=== PATIENT | female | born 1995 | race Two or more races ===

== ENCOUNTER 2018-07-13 19:06 | Emergency (ER) | payer OTHER ==
[~2018-07-13] VITALS: Ht 157.5 cm; Wt 53.1 kg
[2018-07-13] MEDS ORDERED: NKM (19:12)
--- NOTE | 2018-07-13 19:22 | NUR ---
ED Nurse Note: Pt walked in Er and c/o R earache since 1am today. Pt is AO x 4times, Vss, on room air no distress. CHEVYD seen Pt at bedside.
[2018-07-13 19:23] VITALS: BP 130/81
--- NOTE | 2018-07-13 19:34 | Emergency Room Report ---
History of Present Illness General Chief Complaint: Earache Source: Patient Present Illness HPI 23-year-old female presents to the emergency department complaining of 5 out of 10 in severity right ear pain 2 days. Patient reports that the pain awoke her from her sleep. Patient reports that her hearing is been slightly distorted and she hears slight scratchy/static noise from that ear. Patient reports a sudden episode of 10/10 pain and then felt a pop. She states this occurred twice [employer]. Patient reports one hot flash she denies measured fevers or chills she reports she has had some nasal congestion but otherwise no other symptoms. Patient states she took some ibuprofen which helped reduce her pain for an hour or 2 but then her pain returned. Denies discharge from the ear or external ear tenderness Allergies: Coded Allergies: No Known Allergies (Unverified , 07/13/18) Patient History Past Medical History: see triage record Past Surgical History: none Pertinent Family History: none Last Menstrual Period: 3 1/2 weeks ago Now: No Immunizations: UTD Reviewed Nursing Documentation: PMH: Agreed; PSxH: Agreed Nursing Documentation-PMH Past Medical History: No Stated History Review of Systems All Other Systems: negative except mentioned in HPI Physical Exam Vital Signs Date Time Temp Pulse Resp B/P (MAP) Pulse Ox O2 Delivery O2 Flow Rate FiO2 07/13/18 19:08 98.2 99 16 129/84 98 Room Air Sp02 EP Interpretation: reviewed, normal General Appearance: no apparent distress, alert, GCS 15, non-toxic Head: normocephalic, atraumatic Eyes: bilateral eye normal inspection, bilateral eye PERRL ENT: hearing grossly normal, normal voice, other - right tympanic membrane is erythematous and bulging, not perforated, left TM and canal are WNL. Neck: full range of motion Respiratory: lungs clear, normal breath sounds, speaking full sentences Cardiovascular #1: regular rate, rhythm Musculoskeletal: back normal, gait/station normal, normal range of motion, non- tender Neurologic: alert, oriented x3, responsive, motor strength/tone normal, sensory intact, speech normal, grossly normal Psychiatric: judgement/insight normal Skin: normal color, no rash, warm/dry, well hydrated Lymphatic: no adenopathy Medical Decision Making PA Attestation Dr. Warren is my supervising Physician whom patient management has been discussed with. Diagnostic Impression: Primary Impression: Otitis media Qualified Codes: H66.001 - Acute suppurative otitis media without spontaneous rupture of ear drum, right ear ER Course 23-year-old female presents to the emergency department complaining of 5 out of 10 in severity right ear pain 2 days. Patient reports that the pain awoke her from her sleep. Patient reports that her hearing is been slightly distorted and she hears slight scratchy/static noise from that ear. Patient reports a sudden episode of 10/10 pain and then felt a pop. She states this occurred twice [employer]. Patient reports one hot flash she denies measured fevers or chills she reports she has had some nasal congestion but otherwise no other symptoms. Patient states she took some ibuprofen which helped reduce her pain for an hour or 2 but then her pain returned. Denies discharge from the ear or external ear tenderness Ddx considered but are not limited to OM, OE, mastoiditis, TM perforation, FB Vital signs: are WNL, pt. is afebrile H&PE are most consistent with otitis media ORDERS: none required at this time, the diagnosis is clinical -OTOSCOPY: right tympanic membrane is erythematous and bulging, not perforated, left TM and canal are WNL. ED INTERVENTIONS: None required at this time. DISCHARGE: At this time pt. is stable for d/c to home. With PO ABX. Will provide printed patient care instructions, and any necessary prescriptions. Care plan and follow up instructions have been discussed with the patient prior to discharge. Last Vital Signs Date Time Temp Pulse Resp B/P (MAP) Pulse Ox O2 Delivery O2 Flow Rate FiO2 07/13/18 19:23 98.4 72 16 130/81 98 Room Air Disposition: HOME, SELF-CARE Condition: Stable Scripts Acetaminophen* (TYLENOL EXTRA STRENGTH*) 500 Mg Tablet 500 MG ORAL Q6H PRN for Mild Pain/Temp > 100.5, #30 TAB 0 Refills Prov: Amina Emerson 07/13/18 Amoxicillin/Potassium Clav 875-125* (AUGMENTIN 875-125 TABLET*) 1 Each Tablet 1 TAB ORAL TWICE A DAY for 10 Days, #20 TAB Prov: Amina Emerson 07/13/18 Patient Instructions: Otitis Media, Adult, [id number] Additional Instructions: Take medications as directed. Follow up with a Primary Care Provider in 3-5 days, even if your symptoms have resolved. --Please review list of primary care clinics, if you do not already have a primary care provider Return sooner to ED if new symptoms occur, or current symptoms become worse. - Please note that this Emergency Department Report was dictated using [employer] maintenance engineer technology software, occasionally this can lead to erroneous entry secondary to interpretation by the dictation equipment. Amina Emerson Jul 13, 2018 19:34
[2018-07-13] MEDS ORDERED: TYLENOL EXTRA500 MG ORAL (19:35)
[2018-07-13] MEDS ORDERED: AUGMENTIN 875-1 EAC1 ORAL (19:35)
[2018-07-13 19:45] VITALS: BP 130/81
--- NOTE | 2018-07-13 19:45 | NUR ---
ED Nurse Note: Pt cleared DC by DALTON. Pt is AO x 4times, VSS, on room air no distress. Belongings given to Pt. ID bend removed. DC and Meds instructions given to Pt, Pt understood well. Pt walked out unit with steady gait.
== END 2018-07-13 19:45 | disposition home or self-care (01) ==
LOC: EMR 19:30
DX: H66.91 Otitis media, unspecified, right ear (principal)
CPT/HCPCS: 99283

== ENCOUNTER 2019-04-10 18:44 | Emergency (ER) | payer SELFPAY ==
[~2019-04-10] VITALS: Ht 157.5 cm; Wt 58.1 kg
[~2019-04-10 18:44] MED LIST: AUGMENTIN 875-1 EAC1 ORAL; NKM; TYLENOL EXTRA500 MG ORAL
[2019-04-10] MEDS ORDERED: UNOBMED (18:56)
--- NOTE | 2019-04-10 19:31 | NUR ---
ED Nurse Note: Pt ambulated to ED from home c/o 01/20 intermittent sharp stabbing pain in R thumb since this morning, denies trauma. reports thumb feels hot. VSS
[2019-04-10 19:32] VITALS: BP 137/92
--- NOTE | 2019-04-10 19:33 | Emergency Room Report ---
History of Present Illness General Chief Complaint: Pain Source: Patient Present Illness HPI 23-year-old female patient presents the ER complaining of right thumb pain for the past day. Reports she woke up with pain in her right thumb. Reports pain worse at the joint. Denies fever vomiting chills. Denies redness. Reports mild swelling. Reports mild numbness in the finger. Denies history of problems. Patient reports she is right-hand dominant. Denies acute injury or accident. Allergies: Coded Allergies: No Known Allergies (Unverified , 07/13/18) Patient History Past Medical History: see triage record Last Menstrual Period: 03/2019 Now: No Reviewed Nursing Documentation: PMH: Agreed; PSxH: Agreed Nursing Documentation-PMH Hx Hypertension: Yes Review of Systems All Other Systems: negative except mentioned in HPI Physical Exam Vital Signs Date Time Temp Pulse Resp B/P (MAP) Pulse Ox O2 Delivery O2 Flow Rate FiO2 04/10/19 18:52 88 20 137/92 (107) 97 Room Air Sp02 EP Interpretation: reviewed, normal General Appearance: well appearing, no apparent distress, alert, GCS 15, non- toxic Head: normocephalic, atraumatic Eyes: bilateral eye normal inspection, bilateral eye PERRL ENT: hearing grossly normal, normal pharynx, no angioedema, normal voice, uvula midline, moist mucus membranes Neck: full range of motion Respiratory: lungs clear, normal breath sounds, no rhonchi, no respiratory distress, no accessory muscle use, no wheezing, speaking full sentences Cardiovascular #1: regular rate, rhythm, no edema Musculoskeletal: back normal, digits/nails normal, gait/station normal, normal range of motion, swelling - mild IP joint swelling, other - full ROM, able to make a fist, flexor and extensor mechanisms intact, tender - IP joint of right thumb Neurologic: alert, oriented x3, responsive, motor strength/tone normal, sensory intact Lymphatic: no adenopathy Medical Decision Making PA Attestation Dr. Martin is my supervising Physician whom patient management has been discussed with. Diagnostic Impression: Primary Impression: Sprain of right thumb ER Course Pt. presents to the ED c/o right thumb pain. Ddx considered but are not limited to fracture, sprain, strain, contusion, dislocation, gout. No erythema, no warmth to touch, no fever, nontoxic appearing, low suspicion for septic joint. Soft compartments, no pulselessness, no pallor, no paresthesias, low suspicion for compartment syndrome at this time. No erythema, no gouty tophi, low suspicion for gout. Vital signs: are WNL, pt. is afebrile Ordered X-ray and pain medication. ER COURSE Provided with pain medication. An X-ray of the right thumb shows no acute fracture or dislocation. Likely thumb sprain. Follow-up with Ortho. Provided with thumb splint at patient request. Advised on range of motion exercises. Patient instructed on RICE method: rest, ice, compression, elevation. Patient instructed on rest, ice and heat. Patient instructed to be WBAT Contact information for orthopedic urgent care provided, follow-up with urgent care if unable to followup with primary care provider and get referral to asw specialist. Followup with primary care provider. Discuss referral to ortho/pain management/ PT as needed. Discuss further imaging with MRI/CT as needed. DISCHARGE: At this time pt. is stable for d/c to home. Patient is resting comfortably, in no acute distress, nontoxic appearing, talking without difficulty. Will provide printed patient care instructions, and any necessary prescriptions. Patient instructed to follow with primary care provider in 3 - 5 days and to request further follow-up as needed. Care plan and follow up instructions have been discussed with the patient prior to discharge. Take medications as directed. Patient questions asked and answered. Patient reports understanding and agreement to treatment plan. ER precautions given, patient instructed to return to ER immediately for any new or worsening of symptoms. - Please note that this Emergency Department Report was dictated using [employer] industrial engineer technology software, occasionally this can lead to erroneous entry secondary to interpretation by the dictation equipment. Other X-Ray Diagnostic Results Other X-Ray Diagnostic Results : X-Ray ordered: right thumb # of Views/Limited Vs Complete: 3 View Indication: Pain EP Interpretation: Yes PA Xray: Interpretation reviewed, by supervising MD, and agrees with findings. Interpretation: no dislocation, no soft tissue swelling, no fractures Impression: No acute disease KURT Scribe Text Jovanny Russell PA-C Last Vital Signs Date Time Temp Pulse Resp B/P (MAP) Pulse Ox O2 Delivery O2 Flow Rate FiO2 04/10/19 18:52 88 20 137/92 (107) 97 Room Air Status: improved Disposition: HOME, SELF-CARE Condition: Stable Scripts Ibuprofen* (MOTRIN*) 600 Mg Tablet 600 MG ORAL Q8H PRN for For Pain, #30 TAB 0 Refills Prov: Patric Russell 04/10/19 Patient Instructions: Thumb Sprain Additional Instructions: Patient instructed to follow up with primary care provider and discuss further referral to orthopedics/physical therapy/pain management as needed. If unable to followup with PCP, followup with orthopedic urgent care in 5-7 days , call to schedule appointment. Patient instructed on RICE method: rest, ice, compression, elevation. Patient instructed to WBAT. Take medications as directed. Patient questions asked and answered. ER precautions given, patient instructed to return to ER immediately for any new or worsening of symptoms. [facility] [address] [facility] [facility], [id number] [email or web address] Patric Russell Apr 10, 2019 19:33
[2019-04-10] MEDS ORDERED: IBUPROFEN600 MG ORAL (19:47)
--- NOTE | 2019-04-10 20:03 | NUR ---
ER DISCHARGE NOTE: Patient is cleared to be discharged per ERMD, pt is aox4, on room air, with stable vital signs. pt was given dc and prescription instructions, pt was able to verbalize understanding, pt id band removed. pt is able to ambulate with steady gait. pt took all belongings.
--- NOTE | 2019-04-10 20:34 | Diagnostic Imaging Report ---
EXAM: XR Right Thumb 2 or More Views CLINICAL HISTORY: PAIN TECHNIQUE: Frontal, lateral and oblique views of the first finger of the right hand. COMPARISON: none FINDINGS: Bones joints: Unremarkable. No acute fracture. No dislocation. Soft tissues: Unremarkable. No radiopaque foreign body. IMPRESSION: Normal x-rays of the right thumb.
== END 2019-04-10 19:51 | disposition home or self-care (01) ==
LOC: EMR 19:28
DX: S63.601A Unspecified sprain of right thumb, initial encounter (principal); I10 Essential (primary) hypertension; X58.XXXA Exposure to other specified factors, initial encounter; Y92.9 Unspecified place or not applicable
CPT/HCPCS: 99283